=== PATIENT | female | born 1980 | race Caucasian/White ===

== ENCOUNTER 2016-07-31 16:20 | Emergency (ER) | payer BC ==
[2016-07-31 16:27] VITALS: RESP 18
[2016-07-31] MEDS ORDERED: MECLIZINE 12.5 MG TAB PO STA (16:36)
[2016-07-31] MEDS ORDERED: SODIUM CHLORIDE 0.9% 1,000 ML IV STA (16:36)
--- NOTE | 2016-07-31 16:41 | ED ---
Dizziness HPI - General Chief Complaint: Dizziness Stated Complaint: Nausea/Dizziness Time Seen by Provider: 07/31/16 16:31 Source: patient, RN notes reviewed Mode of arrival: wheelchair Limitations: no limitations - History of Present Illness Initial Comments: 35-year-old female presents to the emergency department with a chief complaint of dizziness. Patient states that today he started to see dizziness that occurred all of a sudden. Like the room is spinning. Patient states if she lays to one side and closes her eyes it seems to improve. Patient states movement seems to make it worse. Patient states he has had a fever chills with this. Patient states there is some nausea associated with this. Patient states that she has had this in the past. Patient states she also does feel thirsty abscess time. Patient states there is no falls traumas or injuries with this. Patient states especially the dizziness she is experience before. Patient denies headache. Patient denies any recent fever, chills, shortness of breath, chest pain, back pain, abdominal pain, nausea vomiting, numbness or tingling, dysuria or hematuria, constipation or diarrhea, headaches or visual changes, or any other current symptoms. - Related Data Home Medications Medication Instructions Recorded Confirmed L.acidoph,Paracasei, B.lactis 1 cap PO DAILY 07/31/16 07/31/16 [Probiotic] LORazepam [Ativan] 0.5 mg PO BID PRN 07/31/16 07/31/16 Multivitamins, Thera [Multivitamin] 1 tab PO DAILY 07/31/16 07/31/16 busPIRone HCl [Buspar] 10 mg PO BID 07/31/16 07/31/16 lamoTRIgine [LaMICtal] 200 mg PO HS 07/31/16 07/31/16 Allergies Allergy/AdvReac Type Severity Reaction Status Date / Time No Known Allergies Allergy Verified 07/31/16 16:42 Review of Systems ROS Statement: Those systems with pertinent positive or pertinent negative responses have been documented in the HPI. ROS Other: All systems not noted in ROS Statement are negative. Past Medical History Past Medical History: No Reported History History of Any Multi-Drug Resistant Organisms: None Reported Past Surgical History: Section, Cholecystectomy Past Psychological History: No Psychological Hx Reported, Anxiety, Bipolar Smoking Status: Never smoker Past Alcohol Use History: Occasional Past Drug Use History: None Reported General Exam - General Exam Comments Initial Comments: General: The patient is awake and alert, in no distress, and does not appear acutely ill. Eye: Pupils are equal, round and reactive to light, extra-ocular movements are intact; there is normal conjunctiva bilaterally. No signs of icterus. Ears, nose, mouth and throat: There are moist mucous membranes. Neck: The neck is supple, there is no tenderness. Cardiovascular: There is a regular rate and rhythm. No murmur, rub or gallop is appreciated. Respiratory: Lungs are clear to auscultation, respirations are non-labored, breath sounds are equal. No wheezes, stridor, rales, or rhonchi. Gastrointestinal: Soft, non-distended, non-tender abdomen without masses or organomegaly noted. There is no rebound or guarding present. No CVA tenderness. Bowel sounds are unremarkable. Back: There is no tenderness to palpation in the midline. There is no obvious deformity. No rashes noted. Musculoskeletal: Normal ROM, no tenderness, There is no pedal edema. There is no calf tenderness or swelling. Sensation intact. Pulses equal bilaterally 2+. Neurological: CN II-XII intact, There are no obvious motor or sensory deficits. Coordination appears grossly intact. Speech is normal. no ataxia. Skin: Skin is warm and dry and no rashes or lesions are noted. Psychiatric: Cooperative, appropriate mood & affect, normal judgment. Limitations: no limitations Course Vital Signs 07/31/16 07/31/16 16:23 17:45 Temperature 97.4 F L Pulse Rate 100 92 Respiratory 18 18 Rate Blood Pressure 139/84 130/79 O2 Sat by Pulse 97 100 Oximetry Medical Decision Making - Medical Decision Making 35-year-old female presents emergency Department what appears to be vertigo. Patient has a history of this in the past states exactly like this. Patient does state that she took a double dose of her psychiatric medications because she missed her doses yesterday as well. She states that these symptoms have been following this. She states there is no suicidal or homicidal ideation with this actually states she does not take them so she thought that she should make sure she took both doses. At this time patient's symptoms are more consistent with vertigo properly taking twice a day to help possibly she does not remember it could be a side effect of that medication. At this time patient does contract to see if she does develop any thoughts she has not had any here. Workup otherwise is negative. We did discuss Return parameters. Patient states that she understood all cushions were answered. She will be discharged. - Lab Data Result diagrams: 07/31/16 16:51 07/31/16 16:51 Lab Results 07/31/16 07/31/16 07/31/16 Range/Units 16:51 16:51 18:00 WBC 5.3 (3.8-10.6) k/uL RBC 4.68 (3.80-5.40) m/uL Hgb 13.9 (11.4-16.0) gm/dL Hct 43.0 (34.0-46.0) % MCV 91.8 (80.0-100.0) fL MCH 29.7 (25.0-35.0) pg MCHC 32.3 (31.0-37.0) g/dL RDW 13.1 (11.5-15.5) % Plt Count 300 (150-450) k/uL Neutrophils % 64 % Lymphocytes % 29 % Monocytes % 3 % Eosinophils % 1 % Basophils % 1 % Neutrophils # 3.4 (1.3-7.7) k/uL Lymphocytes # 1.5 (1.0-4.8) k/uL Monocytes # 0.2 (0-1.0) k/uL Eosinophils # 0.0 (0-0.7) k/uL Basophils # 0.0 (0-0.2) k/uL Sodium 135 L (137-145) mmol/L Potassium 3.9 (3.5-5.1) mmol/L Chloride 100 (98-107) mmol/L Carbon Dioxide 22 (22-30) mmol/L Anion Gap 13 mmol/L BUN 10 (7-17) mg/dL Creatinine 0.73 (0.52-1.04) mg/dL Est GFR (MDRD) Af Amer >60 (>60 ml/min/1.73 sqM) Est GFR (MDRD) Non-Af >60 (>60 ml/min/1.73 sqM) Glucose 118 H (74-99) mg/dL Calcium 9.1 (8.4-10.2) mg/dL Total Bilirubin 0.5 (0.2-1.3) mg/dL AST 23 (14-36) U/L ALT 24 (9-52) U/L Alkaline Phosphatase 76 (38-126) U/L Total Protein 7.7 (6.3-8.2) g/dL Albumin 4.4 (3.5-5.0) g/dL Urine Color Yellow Urine Appearance Clear (Clear) Urine pH 7.0 (5.0-8.0) Ur Specific [place] 1.016 (1.001-1.035) Urine Protein Trace H (Negative) Urine Glucose (UA) Negative (Negative) Urine Ketones Trace H (Negative) Urine Blood Negative (Negative) Urine Nitrate Negative (Negative) Urine Bilirubin Negative (Negative) Urine Urobilinogen <2.0 (<2.0) mg/dL Ur Leukocyte Esterase Small H (Negative) Urine RBC 2 (0-5) /hpf Urine WBC 17 H (0-5) /hpf Ur Squamous Epith Cells 3 (0-4) /hpf Amorphous Sediment Rare H (None) /hpf Urine Mucus Rare H (None) /hpf Disposition Clinical Impression: Vertigo, Medication side effect Disposition: HOME SELF-CARE Condition: Stable Instructions: Vertigo (ED) Additional Instructions: Please use medication as discussed. Please follow up with family doctor if symptoms have not improved over the next two days. Please return to the emergency room if your symptoms increase or worsen or for any other concerns. Referrals: Amy Lal MD [STAFF PHYSICIAN] - 1-2 days Time of Disposition: 18:45
[2016-07-31] MEDS ORDERED: METOCLOPRAMIDE 5 MG/ML 2 ML VIAL IVP STA (16:48)
[2016-07-31] MEDS ORDERED: DIAZEPAM 5 MG/ML 2 ML SYRINGE IVP STA (16:55)
[2016-07-31 17:04] LABS: Basophils % (A) 1 %; CH 30.3; CHCM 33.2; Eosinophils % (A) 1 %; HDW 2.15; HGB 13.9 gm/dL (11.4-16.0); Luc # (Auto) 0.12; Luc % (Auto) 2; Lymphocytes # (A) 1.5 k/uL (1.0-4.8); Lymphocytes % (A) 29 %; MCH 29.7 pg (25.0-35.0); MCHC 32.3 g/dL (31.0-37.0); MCV 91.8 fL (80.0-100.0); Monocytes # (A) 0.2 k/uL (0-1.0); Monocytes % (A) 3 %; Neutrophils # (A) 3.4 k/uL (1.3-7.7); Neutrophils % (A) 64 %; RBC 4.68 m/uL (3.80-5.40); RDW 13.1 % (11.5-15.5); WBC 5.3 k/uL (3.8-10.6); WBC (Perox) 5.32
[2016-07-31 17:18] LABS: ALT 24 U/L (9-52); AST 23 U/L (14-36); Alkaline Phosphatase 76 U/L (38-126); Anion Gap 13 mmol/L; Blood Urea Nitrogen 10 mg/dL (7-17); Calcium 9.1 mg/dL (8.4-10.2); Carbon Dioxide 22 mmol/L (22-30); Chloride 100 mmol/L (98-107); Glucose 118 mg/dL (74-99); Non-African American GFR(MDRD) >60 (>60 ml/min/1.73 sqM); Sodium 135 mmol/L (137-145); Total Bilirubin 0.5 mg/dL (0.2-1.3); Total Protein 7.7 g/dL (6.3-8.2)
[2016-07-31 17:28] LABS: Potassium 3.9 mmol/L (3.5-5.1)
[2016-07-31 18:18] LABS: Amorphous Sediment,Urine Rare /hpf; Appearance,Urine Clear (Clear); Bilirubin,Urine Negative (Negative); Glucose,Urine (UA) Negative (Negative); Ketones,Urine Trace (Negative); Leukocyte Esterase,Urine Small (Negative); Mucus,Urine Rare /hpf; Nitrite,Urine Negative (Negative); Particle Count 2798; Protein,Urine Trace (Negative); RBC,Urine 2 /hpf (0-5); Specific Gravity,Urine 1.016 (1.001-1.035); Squamous Epithelial Cell,Urine 3 /hpf (0-4); UA Billing (MACRO vs. MICRO) MICRO; Urobilinogen,Urine <2.0 mg/dL (<2.0); WBC,Urine 17 /hpf (0-5)
--- NOTE | 2016-07-31 18:36 | CT ---
EXAMINATION TYPE: CT brain wok con DATE OF EXAM: 07/31/2016 6:21 PM COMPARISON: NONE HISTORY: Dizziness with nausea and vomiting today. CT DLP: 1079.00 mGycm Automated exposure control for dose reduction was used. FINDINGS: There is no acute intracranial hemorrhage, mass effect, or midline shift identified. The ventricles and sulci are within normal limits in size. The globes are intact and the visualized sinuses are reanto ar. IMPRESSION: No acute intracranial hemorrhage, mass effect, or midline shift is seen.
[2016-07-31 19:06] VITALS: BP 129/81; PULSE 98; TEMP 97.8
== END 2016-07-31 19:00 | disposition home or self-care (01) ==
LOC: EC 16:20
DX: R42 Dizziness and giddiness (principal); R11.0 Nausea; T43.95XA Adverse effect of unspecified psychotropic drug, initial encounter; F31.9 Bipolar disorder, unspecified; F41.9 Anxiety disorder, unspecified; Z79.899 Other long term (current) drug therapy
CPT/HCPCS: 99284; 96374; 96361; 36415; 93005; 80053; 85025; 81001; 70450; J2765

== ENCOUNTER → 2017-08-25 | Outpatient (CLI) | payer BC ==
--- NOTE | 2017-08-25 12:45 | XR ---
EXAMINATION TYPE: XR cervical spine w flex/ext DATE OF EXAM: 08/25/2017 COMPARISON: NONE HISTORY: Pain TECHNIQUE: Neutral, flexion, and extension lateral views are obtained. Odontoid and frontal views als o submitted. FINDINGS: There is loss of the normal lordosis on the neutral view with a kyphosis noted. At C3-C4 on neutral and flexion views there is a 1 mm anterior listhesis. 1 mm anterolisthesis of C5 on C6 seen on flexion view only. Next On extension view there does appear to be movement posteriorly at levels C2-C3, C3-C4 and C4-C5 with approximately 1 to 2 mm retrolisthesis. IMPRESSION: 1. There is some alteration in alignment upon flexion as discussed above. Ligamentous laxity in the d ifferential diagnosis. Correlate clinically or with MRI as clinically warranted.
== END | disposition home or self-care (01) ==
LOC: RADXRMAIN 11:26
PROVIDERS: ATTEND Psychiatry & Neurology Neurology
DX: M53.82 Other specified dorsopathies, cervical region (principal)
CPT/HCPCS: 72052

== ENCOUNTER → 2017-11-06 | Outpatient (CLI) | payer BC ==
--- NOTE | 2017-11-06 09:24 | US ---
EXAMINATION TYPE: US venous doppler duplex LE RT DATE OF EXAM: 11/06/2017 8:58 AM COMPARISON: NONE CLINICAL HISTORY: M79.89 RT leg swelling; right calf pain x 2-3 weeks; no trauma noted by patient SIDE PERFORMED: Right TECHNIQUE: The lower extremity deep venous system is examined utilizing real time linear array sonog consuelo with graded compression, doppler sonography and color-flow sonography. VESSELS IMAGED: Common Femoral Vein Deep Femoral Vein Greater Saphenous Vein * Femoral Vein Popliteal Vein Small Saphenous Vein * Proximal Calf Veins (* superficial vessels) Right Leg: Negative for DVT Tech findings called to Dr Amy Lal at exam's end. JJ IMPRESSION: 1. Right lower extremities negative for deep venous thrombosis by ultrasound.
== END | disposition home or self-care (01) ==
LOC: RADUSMAIN 08:32
PROVIDERS: ATTEND Family Medicine
DX: M79.661 Pain in right lower leg (principal); M79.89 Other specified soft tissue disorders

== ENCOUNTER 2017-11-13 18:36 | Emergency (ER) | payer BC ==
[2017-11-13 18:53] VITALS: BP 145/84; PULSE 94; RESP 18; TEMP 98.5
--- NOTE | 2017-11-13 18:58 | ED ---
Lower Extremity Injury HPI - General Chief Complaint: Extremity Injury, Lower Stated Complaint: Leg pain Time Seen by Provider: 11/13/17 18:47 Source: patient, RN notes reviewed Mode of arrival: ambulatory Limitations: no limitations - History of Present Illness Initial Comments: This a 37-year-old female presents emergency Department chief complaint right leg pain. Patient states has been present for last 3 weeks. Patient saw PCP a few days ago and old chart right leg which was negative for acute DVT. Patient states she feels a throbbing burning sensation in her calf. It is worse with ambulation or pressure. Patient denies any discoloration, rash, swelling or leg. Patient states that she had no trauma she noted. She does state that when she walks or worsens with has not had much improvement with rest. Patient was advised take ibuprofen by PCP and she has been doing this with no improvement. Patient was advised, emergency from for evaluation if symptoms do not improve. - Related Data Home Medications Medication Instructions Recorded Confirmed LORazepam [Ativan] 0.5 mg PO BID PRN 07/31/16 07/31/16 lamoTRIgine [LaMICtal] 200 mg PO HS 07/31/16 07/31/16 Aspirin 650 mg PO DAILY PRN 11/13/17 11/13/17 Ballard-Linyah 28 1 tab PO DAILY 11/13/17 11/13/17 Ondansetron [Zofran ODT] 4 mg PO Q8HR PRN 11/13/17 11/13/17 Allergies Allergy/AdvReac Type Severity Reaction Status Date / Time No Known Allergies Allergy Verified 11/13/17 19:00 Review of Systems ROS Statement: Those systems with pertinent positive or pertinent negative responses have been documented in the HPI. ROS Other: All systems not noted in ROS Statement are negative. Past Medical History Past Medical History: No Reported History History of Any Multi-Drug Resistant Organisms: None Reported Past Surgical History: Section, Cholecystectomy Past Psychological History: No Psychological Hx Reported, Anxiety, Bipolar Smoking Status: Never smoker Past Alcohol Use History: Occasional Past Drug Use History: None Reported General Exam Limitations: no limitations General appearance: alert, in no apparent distress Head exam: Present: atraumatic, normocephalic, normal inspection Respiratory exam: Present: normal lung sounds bilaterally. Absent: respiratory distress, wheezes, rales, rhonchi, stridor Cardiovascular Exam: Present: regular rate, normal rhythm, normal heart sounds. Absent: systolic murmur, diastolic murmur, rubs, gallop, clicks Extremities exam: Present: other (There is moderate tenderness the right calf with palpation there is no discoloration or change in warmth in color. There is no rash noted. Patient has no noted swelling. Pedal pulses are equal bilaterally there is pain with dorsi flexion and plantar flexion. There is no tenderness of the knee or popliteal region.) Skin exam: Present: warm, dry, intact, normal color. Absent: rash Course Vital Signs 11/13/17 18:51 Temperature 98.5 F Pulse Rate 94 Respiratory 18 Rate Blood Pressure 145/84 O2 Sat by Pulse 99 Oximetry Medical Decision Making - Medical Decision Making 37-year-old female presents from chief complaint of right leg pain. Patient had prior ultrasound which was unremarkable for DVT. Patient's x-ray is unremarkable. Patient's pain seems to be more related with muscle skeletal injury such as a soleus versus gastrocnemius strain. Patient will be treated conservatively and follow-up with orthopedics. Return parameters were discussed. Disposition Clinical Impression: Strain of calf muscle, Strain of soleus muscle Disposition: HOME SELF-CARE Condition: Stable Instructions: Muscle Strain (ED) Additional Instructions: Please return to the Emergency Department if symptoms worsen or any other concerns. Is patient prescribed a controlled substance at d/c from ED?: No Referrals: Amy Lal MD [Primary Care Provider] - 1-2 days Isaac Salazar DO [Doctor of Osteopathic Medicine] - 1-2 days Time of Disposition: 19:18
--- NOTE | 2017-11-13 19:13 | XR ---
EXAMINATION TYPE: XR tibia fibula RT DATE OF EXAM: 11/13/2017 CLINICAL HISTORY: Posterior calf pain for 3 weeks. TECHNIQUE: Two views of the right leg are obtained. COMPARISON: None. FINDINGS: There is no acute fracture or dislocation seen in the right tibia or fibula. The right kn ee and ankle joints appear within normal limits. The overlying soft tissue appears unremarkable. IMPRESSION: Unremarkable study.
== END 2017-11-13 19:40 | disposition home or self-care (01) ==
LOC: EC 18:36
DX: S86.911A Strain of unspecified muscle(s) and tendon(s) at lower leg level, right leg, initial encounter (principal); Z79.3 Long term (current) use of hormonal contraceptives; Z79.899 Other long term (current) drug therapy
CPT/HCPCS: 99283

== ENCOUNTER 2017-12-22 03:41 | Emergency (ER) | payer BC ==
[2017-12-22 03:47] VITALS: RESP 18; TEMP 98
--- NOTE | 2017-12-22 04:11 | ED ---
General Adult HPI - General Chief complaint: Urogenital Stated complaint: Possible UTI Time Seen by Provider: 12/22/17 03:57 Source: patient, RN notes reviewed, old records reviewed Mode of arrival: ambulatory Limitations: no limitations - History of Present Illness Initial comments: This is a 29-year-old female the ER for evaluation. Patient comes in for evaluation of what she feels like his urinary tract infection. Patient has history of UTIs. Patient denies any flank pain no chance of . No nausea vomiting. No fevers. Again no flank pain or abdominal pain. - Related Data Home Medications Medication Instructions Recorded Confirmed LORazepam [Ativan] 0.5 mg PO BID PRN 07/31/16 11/13/17 lamoTRIgine [LaMICtal] 400 mg PO HS 07/31/16 11/13/17 Aspirin 650 mg PO DAILY PRN 11/13/17 11/13/17 [place]-Linyah 28 1 tab PO DAILY 11/13/17 11/13/17 Ondansetron [Zofran ODT] 4 mg PO Q8HR PRN 11/13/17 11/13/17 Previous Rx's Medication Instructions Recorded Nitrofurantoin Monohyd/M-Cryst 100 mg PO Q12HR #10 cap 12/22/17 [Macrobid] Allergies Allergy/AdvReac Type Severity Reaction Status Date / Time No Known Allergies Allergy Verified 12/22/17 03:47 Review of Systems ROS Statement: Those systems with pertinent positive or pertinent negative responses have been documented in the HPI. ROS Other: All systems not noted in ROS Statement are negative. Past Medical History Past Medical History: No Reported History History of Any Multi-Drug Resistant Organisms: None Reported Past Surgical History: Section, Cholecystectomy Past Psychological History: Anxiety, Bipolar Smoking Status: Never smoker Past Alcohol Use History: Occasional Past Drug Use History: None Reported General Exam Limitations: no limitations General appearance: alert, in no apparent distress Head exam: Present: atraumatic, normocephalic, normal inspection Eye exam: Present: normal appearance, PERRL, EOMI. Absent: scleral icterus, conjunctival injection, periorbital swelling ENT exam: Present: normal exam, mucous membranes moist Neck exam: Present: normal inspection. Absent: tenderness, meningismus, lymphadenopathy Respiratory exam: Present: normal lung sounds bilaterally. Absent: respiratory distress, wheezes, rales, rhonchi, stridor Cardiovascular Exam: Present: normal rhythm, tachycardia, normal heart sounds. Absent: systolic murmur, diastolic murmur, rubs, gallop, clicks GI/Abdominal exam: Present: soft, normal bowel sounds. Absent: distended, tenderness, guarding, rebound, rigid Extremities exam: Present: normal inspection, full ROM, normal capillary refill. Absent: tenderness, pedal edema, joint swelling, calf tenderness Back exam: Present: normal inspection Neurological exam: Present: alert, oriented X3, CN II-XII intact Psychiatric exam: Present: normal affect, normal mood Skin exam: Present: warm, dry, intact, normal color. Absent: rash Course Vital Signs 12/22/17 03:45 Temperature 98.0 F Pulse Rate 103 H Respiratory 18 Rate Blood Pressure 142/92 O2 Sat by Pulse 98 Oximetry Medical Decision Making - Medical Decision Making 37 female the ER with positive symptoms of urinary tract infection. Patient has urine culture here in the ER, we'll start on antibiotics and discharged home Disposition Clinical Impression: Urinary tract infection Disposition: HOME SELF-CARE Condition: Good Instructions: Urinary Tract Infection in Women (ED) Prescriptions: Nitrofurantoin Monohyd/M-Cryst [Macrobid] 100 mg PO Q12HR #10 cap Is patient prescribed a controlled substance at d/c from ED?: No Referrals: Amy Lal MD [Primary Care Provider] - 1-2 days
[2017-12-22] MEDS ORDERED: NITROFURANTOIN MONOHYD/M-CRYST 100 MG CAP PO STA (04:14)
[2017-12-22 04:45] LABS: Appearance,Urine Clear (Clear); Bilirubin,Urine Negative (Negative); Blood,Urine Moderate (Negative); Color,Urine Colorless; Glucose,Urine (UA) Negative (Negative); Ketones,Urine Negative (Negative); Leukocyte Esterase,Urine Large (Negative); Mucus,Urine Rare /hpf; Nitrite,Urine Negative (Negative); Protein,Urine Negative (Negative); RBC,Urine 1 /hpf (0-5); Specific Gravity,Urine 1.003 (1.001-1.035); Squamous Epithelial Cell,Urine 1 /hpf (0-4); Urobilinogen,Urine <2.0 mg/dL (<2.0); WBC,Urine 56 /hpf (0-5)
[2017-12-22 05:07] VITALS: BP 160/97; PULSE 100
== END 2017-12-22 05:07 | disposition home or self-care (01) ==
LOC: EC 03:41
DX: N39.0 Urinary tract infection, site not specified (principal); R00.0 Tachycardia, unspecified; F31.9 Bipolar disorder, unspecified; Z79.3 Long term (current) use of hormonal contraceptives; Z79.899 Other long term (current) drug therapy
CPT/HCPCS: 81001; 81025; 87077; 87086; 87186; 99284

== ENCOUNTER → 2018-04-23 | Outpatient (CLI) | payer BC ==
[2018-04-23 09:43] LABS: Basophils # (A) 0.1 k/uL (0-0.2); Basophils % (A) 1 %; Eosinophils # (A) 0.1 k/uL (0-0.7); Eosinophils % (A) 2 %; HCT 41.2 % (34.0-46.0); HGB 13.3 gm/dL (11.4-16.0); Lymphocytes # (A) 2.7 k/uL (1.0-4.8); Lymphocytes % (A) 41 %; MCH 29.9 pg (25.0-35.0); MCHC 32.3 g/dL (31.0-37.0); MCV 92.7 fL (80.0-100.0); Mean Platelet Volume 7.1; Monocytes # (A) 0.3 k/uL (0-1.0); Monocytes % (A) 4 %; Neutrophils # (A) 3.4 k/uL (1.3-7.7); Neutrophils % (A) 51 %; Platelet Count 306 k/uL (150-450); RBC 4.44 m/uL (3.80-5.40); WBC 6.6 k/uL (3.8-10.6)
[2018-04-23 17:15] LABS: Albumin 4.2 g/dL (3.80-4.90); Albumin/Globulin Ratio 2.21 (1.20-2.10); Anion Gap 6.2 mmol/L (4.00-12.00); Calcium 9.2 mg/dL (8.7-10.3); Carbon Dioxide 26.8 mmol/L (21.6-31.8); Globulin 1.9 g/dL (2.1-3.7); LDL Cholesterol,Calculated 88.6 mg/dL (0.0-131.0); Potassium 4.3 mmol/L (3.5-5.5); Total Bilirubin 0.3 mg/dL (0.3-1.2); Total Protein 6.1 g/dL (6.2-8.2); VLDL Calculation 40.4 mg/dL (5.00-40.00)
== END | disposition home or self-care (01) ==
LOC: LABWHC1 08:39
PROVIDERS: ATTEND Family Medicine
DX: Z00.00 Encounter for general adult medical examination without abnormal findings (principal); E66.3 Overweight; F31.81 Bipolar II disorder
CPT/HCPCS: 36415; 80053; 80061; 84443; 85025

== ENCOUNTER 2019-03-24 11:22 | Emergency (ER) | payer BC ==
[2019-03-24 11:28] VITALS: BP 135/92; PULSE 89; RESP 18; TEMP 97.7
--- NOTE | 2019-03-24 11:58 | ED ---
General Adult HPI - General Chief complaint: Extremity Injury, Lower Stated complaint: Ankle injury Time Seen by Provider: 03/24/19 11:34 Source: patient Mode of arrival: wheelchair Limitations: no limitations - History of Present Illness Initial comments: Patient is a 38-year-old female presenting to the emergency department with a chief complaint of ankle pain. Patient reports she rolled her left ankle yesterday as she was walking. Patient reports the pain was greater yesterday although has slightly decreased in severity but has now developed bruising. Patient reports the swelling has also increased. Patient reports limited range of motion with inversion and plantar flexion and dorsiflexion. Patient reports pain exacerbation with ambulation and it is alleviated with rest. Patient reports taking ibuprofen for symptomatic control. Patient denies numbness or tingling. - Related Data Home Medications Medication Instructions Recorded Confirmed LORazepam [Ativan] 0.5 mg PO BID PRN 07/31/16 11/13/17 lamoTRIgine [LaMICtal] 400 mg PO HS 07/31/16 11/13/17 Aspirin 650 mg PO DAILY PRN 11/13/17 11/13/17 Barnes-Linyah 28 1 tab PO DAILY 11/13/17 11/13/17 Ondansetron [Zofran ODT] 4 mg PO Q8HR PRN 11/13/17 11/13/17 Previous Rx's Medication Instructions Recorded Fluconazole [Diflucan] 150 mg PO ONCE #2 tab 12/22/17 Nitrofurantoin Monohyd/M-Cryst 100 mg PO Q12HR #10 cap 12/22/17 [Macrobid] Allergies Allergy/AdvReac Type Severity Reaction Status Date / Time No Known Allergies Allergy Verified 03/24/19 11:28 Review of Systems ROS Statement: Those systems with pertinent positive or pertinent negative responses have been documented in the HPI. ROS Other: All systems not noted in ROS Statement are negative. Past Medical History Past Medical History: No Reported History History of Any Multi-Drug Resistant Organisms: None Reported Past Surgical History: Section, Cholecystectomy Past Psychological History: Anxiety, Bipolar Smoking Status: Never smoker Past Alcohol Use History: Occasional Past Drug Use History: None Reported General Exam Limitations: no limitations General appearance: alert, in no apparent distress Head exam: Present: atraumatic, normocephalic, normal inspection Eye exam: Present: normal appearance ENT exam: Present: normal exam, mucous membranes moist, normal external ear exam Neck exam: Present: normal inspection Respiratory exam: Present: normal lung sounds bilaterally Cardiovascular Exam: Present: regular rate, normal rhythm Extremities exam: Present: tenderness (Tenderness of the lateral malleolus and midfoot.), normal capillary refill, joint swelling (Left ankle), other (+2 dorsalis pedis and posterior tibialis bilaterally.). Absent: normal inspection (Ecchymosis and swelling in the left foot), full ROM (Limited range of motion with inversion plantar and dorsiflexion in the left foot), pedal edema, calf tenderness Back exam: Present: normal inspection, full ROM Neurological exam: Present: alert, oriented X3, abnormal gait Psychiatric exam: Present: normal affect, normal mood Skin exam: Present: warm, intact, normal color Course Vital Signs 03/24/19 11:25 Temperature 97.7 F Pulse Rate 89 Respiratory 18 Rate Blood Pressure 135/92 O2 Sat by Pulse 97 Oximetry Medical Decision Making - Medical Decision Making Patient is a 38-year-old female presenting to the emergency department with a chief complaint of ankle pain. Patient had rolled her left ankle yesterday and had developed swelling and ecchymosis in the region. Patient does have problems with ambulation, inversion dorsi and plantar flexion. Physical examination patient does have tenderness along the left lateral malleolus and mild midfoot tenderness. Patient does have positive anterior drawer test. Patient is neurovascularly intact in the left ankle. X-ray of the left ankle is unremarkable. I suspect the patient to have suffered an ankle sprain. Stirrups were applied. Patient advised to obtain a repeat x-ray in 7-10 days if symptoms not improved. Patient advised to follow-up with orthopedics for the same reason. Patient advised to return to emergency department if symptoms worsen. Patient advised to alternate between Tylenol and ibuprofen for pain control. Case discussed with physician. Disposition Clinical Impression: Ankle pain, left, Left ankle sprain Disposition: HOME SELF-CARE Condition: Stable Instructions (If sedation given, give patient instructions): Ankle Sprain (ED) Additional Instructions: Alternate between Tylenol and ibuprofen for pain control. Please follow up with orthopedics if symptoms not improved. Please obtain a repeat x-ray in 7-10 days. Please return to emergency department if symptoms worsen. Apply ice to minimize symptoms. Is patient prescribed a controlled substance at d/c from ED?: No Referrals: None,Stated [Primary Care Provider] - 1-2 days Zaheer Holt DO [Medical Doctor] - 1-2 days Time of Disposition: 13:02
--- NOTE | 2019-03-24 12:29 | XR ---
EXAMINATION TYPE: XR ankle complete LT DATE OF EXAM: 03/24/2019 COMPARISON: NONE HISTORY: Pain FINDINGS: Three views of the ankle demonstrate the ankle mortise to be intact and symmetric. The joint spaces are preserved. The osseous structures are intact. IMPRESSION: 1. No definite acute fracture or dislocation, if symptoms persist follow-up study in 7 to 10 days wou ld be suggested.
--- NOTE | 2019-03-24 12:31 | XR ---
EXAMINATION TYPE: XR foot complete LT DATE OF EXAM: 03/24/2019 COMPARISON: NONE HISTORY: Pain TECHNIQUE: Three views are submitted. FINDINGS: The osseous structures are intact. There is no acute fracture or dislocation. Joint spaces are p reserved. IMPRESSION: 1. No acute fracture or dislocation. If symptoms persist, follow-up exam in 7 to 10 days could be ob tained.
== END 2019-03-24 13:13 | disposition home or self-care (01) ==
LOC: EC 11:22
DX: S93.402A Sprain of unspecified ligament of left ankle, initial encounter (principal); F41.9 Anxiety disorder, unspecified; F31.9 Bipolar disorder, unspecified; Z79.899 Other long term (current) drug therapy; Z79.3 Long term (current) use of hormonal contraceptives; X50.1XXA Overexertion from prolonged static or awkward postures, initial encounter; Y93.01 Activity, walking, marching and hiking
CPT/HCPCS: 99283

== ENCOUNTER 2019-09-06 05:57 | Emergency (ER) | payer BC ==
[2019-09-06 06:11] VITALS: BP 134/95; PULSE 104; RESP 15; TEMP 97.8
--- NOTE | 2019-09-06 06:28 | ED ---
Female Urogenital HPI - General Chief complaint: Urogenital Stated complaint: UTI Time Seen by Provider: 09/06/19 06:02 Source: patient Mode of arrival: ambulatory Limitations: no limitations - History of Present Illness Initial comments: This patient is a 38-year-old woman who presents with suspicion that she is developing urinary tract infection. She states her symptoms are similar to previous urinary tract infections. She states 2-3 days ago she started having frequency and urgency. She also is complaining of burning type dysuria. She took some [id number] cranberry tablets but the symptoms did not improve and have worsened over the course of tonight. The patient is not having any systemic symptoms, no fever or chills. No vomiting or diarrhea. She is not having any back or abdominal pain. No rash or vaginal discharge. MD Complaint: dysuria -: days(s) Location: perineum Radiation: non-radiating Severity: moderate Quality: burning Consistency: intermittent Improves with: urination Worsens with: none Associated Symptoms: other - Related Data Home Medications Medication Instructions Recorded Confirmed LORazepam [Ativan] 0.5 mg PO BID PRN 07/31/16 11/13/17 lamoTRIgine [LaMICtal] 400 mg PO HS 07/31/16 11/13/17 Aspirin 650 mg PO DAILY PRN 11/13/17 11/13/17 [place] 28 1 tab PO DAILY 11/13/17 11/13/17 Ondansetron [Zofran ODT] 4 mg PO Q8HR PRN 11/13/17 11/13/17 Previous Rx's Medication Instructions Recorded Fluconazole [Diflucan] 150 mg PO ONCE #2 tab 12/22/17 Nitrofurantoin Monohyd/M-Cryst 100 mg PO Q12HR #10 cap 12/22/17 [Macrobid] Fluconazole [Diflucan] 150 mg PO ONCE #1 tab 09/06/19 Nitrofurantoin Monohyd/M-Cryst 100 mg PO Q12HR #6 cap 09/06/19 [Macrobid] Phenazopyridine [Pyridium] 100 mg PO TID #6 tablet 09/06/19 Allergies Allergy/AdvReac Type Severity Reaction Status Date / Time No Known Allergies Allergy Verified 09/06/19 06:14 Review of Systems ROS Statement: Those systems with pertinent positive or pertinent negative responses have been documented in the HPI. ROS Other: All systems not noted in ROS Statement are negative. Constitutional: Denies: fever, chills Respiratory: Denies: cough, dyspnea Cardiovascular: Denies: chest pain Gastrointestinal: Denies: abdominal pain, nausea, vomiting, diarrhea Genitourinary: Reports: urgency, dysuria, frequency. Denies: hematuria, discharge, abnormal menses Musculoskeletal: Denies: back pain Skin: Denies: rash Neurological: Denies: headache Past Medical History Past Medical History: No Reported History History of Any Multi-Drug Resistant Organisms: None Reported Past Surgical History: Section, Cholecystectomy Past Psychological History: Anxiety, Bipolar Smoking Status: Never smoker Past Alcohol Use History: Occasional Past Drug Use History: None Reported General Exam Limitations: no limitations General appearance: alert, in no apparent distress Head exam: Present: atraumatic, normocephalic Course Vital Signs 09/06/19 06:05 Temperature 97.8 F Pulse Rate 104 H Respiratory 15 Rate Blood Pressure 134/95 O2 Sat by Pulse 97 Oximetry Medical Decision Making - Lab Data Lab Results 09/06/19 Range/Units 06:03 Urine HCG, Qual Not Detected (Not Detectd) Disposition Clinical Impression: Urinary tract infection Disposition: HOME SELF-CARE Condition: Good Instructions (If sedation given, give patient instructions): Urinary Tract Infection in Women (ED) Prescriptions: Fluconazole [Diflucan] 150 mg PO ONCE #1 tab Nitrofurantoin Monohyd/M-Cryst [Macrobid] 100 mg PO Q12HR #6 cap Phenazopyridine [Pyridium] 100 mg PO TID #6 tablet Is patient prescribed a controlled substance at d/c from ED?: No Referrals: Amy Lal MD [Primary Care Provider] - 1-2 days
[2019-09-06 07:02] LABS: Appearance,Urine Cloudy (Clear); Bacteria,Urine Rare /hpf; Bilirubin,Urine Negative (Negative); Blood,Urine Large (Negative); Color,Urine Yellow; Glucose,Urine (UA) Negative (Negative); Ketones,Urine Negative (Negative); Leukocyte Esterase,Urine Large (Negative); Nitrite,Urine Negative (Negative); Protein,Urine 1+ (Negative); RBC,Urine 71 /hpf (0-5); Specific Gravity,Urine 1.009 (1.001-1.035); Squamous Epithelial Cell,Urine 2 /hpf (0-4); Urobilinogen,Urine <2.0 mg/dL (<2.0); WBC,Urine >182 /hpf (0-5)
[2019-09-06] MEDS ORDERED: PHENAZOPYRIDINE 100 MG TAB PO STA (07:08)
[2019-09-06] MEDS ORDERED: NITROFURANTOIN MONOHYD/M-CRYST 100 MG CAP PO STA (07:31)
== END 2019-09-06 07:42 | disposition home or self-care (01) ==
LOC: EC 05:57
DX: N39.0 Urinary tract infection, site not specified (principal); F41.9 Anxiety disorder, unspecified; F31.9 Bipolar disorder, unspecified; Z79.899 Other long term (current) drug therapy
CPT/HCPCS: 81001; 81025; 87086; 99283

== ENCOUNTER → 2020-01-06 | Outpatient (CLI) | payer BC ==
--- NOTE | 2020-01-06 13:39 | MM ---
Reason for exam: screening (asymptomatic). Baseline mammogram. History: Patient had first child at age 31. Family history of breast cancer in maternal aunt at age 65. Physical Findings: Nurse did not find any significant physical abnormalities on exam. MG 3D Screening Mammo W/Cad Bilateral CC and MLO view(s) were taken. The breast tissue is heterogeneously dense. This may lower the sensitivity of mammography. There is no discrete abnormality. These results were verbally communicated with the patient and result sheet given to the patient on 01/06/20. ASSESSMENT: Negative, BI-RAD 1 RECOMMENDATION: Routine screening mammogram of both breasts in 1 year.
== END | disposition home or self-care (01) ==
LOC: RADMAMWWP 12:13
PROVIDERS: ATTEND Obstetrics & Gynecology Obstetrics
DX: Z12.31 Encounter for screening mammogram for malignant neoplasm of breast (principal)
CPT/HCPCS: 77063; 77067

== ENCOUNTER → 2020-01-10 | Outpatient (CLI) | payer BC ==
[2020-01-10 13:26] LABS: Basophils # (A) 0.1 k/uL (0-0.2); Basophils % (A) 1 %; Eosinophils # (A) 0.1 k/uL (0-0.7); Eosinophils % (A) 2 %; HCT 40.6 % (34.0-46.0); Lymphocytes # (A) 2.5 k/uL (1.0-4.8); Lymphocytes % (A) 40 %; MCH 29.4 pg (25.0-35.0); MCV 91.9 fL (80.0-100.0); Mean Platelet Volume 7.7; Monocytes # (A) 0.2 k/uL (0-1.0); Monocytes % (A) 4 %; Neutrophils # (A) 3.3 k/uL (1.3-7.7); Neutrophils % (A) 52 %; Platelet Count 276 k/uL (150-450); RBC 4.42 m/uL (3.80-5.40); RDW 13.5 % (11.5-15.5); WBC 6.4 k/uL (3.8-10.6)
== END | disposition home or self-care (01) ==
LOC: LABPAT 12:27
PROVIDERS: ATTEND Obstetrics & Gynecology Obstetrics
DX: Z01.818 Encounter for other preprocedural examination (principal)
CPT/HCPCS: 36415; 85025

== ENCOUNTER → 2020-05-22 | Outpatient (CLI) | payer BC ==
[2020-05-22 19:19] LABS: Anti-DNA, DS unit <1.0 IU/mL; DNA Double-Stranded NEGATIVE (NEGATIVE)
[2020-05-22 20:41] LABS: C Reactive Protein 1.1 mg/dL (0.0-0.8)
[2020-05-23 10:55] LABS: Protein, Total 7.1 g/dL (6.2-8.2)
[2020-05-23 14:34] LABS: Albumin 4.08 g/dL (3.80-4.90); Gamma Globulin 0.77 g/dL (0.70-1.50)
== END | disposition home or self-care (01) ==
LOC: LABWHC1 11:12
PROVIDERS: ATTEND Psychiatry & Neurology Neurology
DX: M79.10 Myalgia, unspecified site (principal); G43.909 Migraine, unspecified, not intractable, without status migrainosus; M54.2 Cervicalgia; M25.50 Pain in unspecified joint; G62.9 Polyneuropathy, unspecified
CPT/HCPCS: 36415; 82306; 82550; 84165; 84443; 85652; 86038; 86140; 86225; 86431; 86618; 86780

== ENCOUNTER 2020-06-08 12:36 | Emergency (ER) | payer BC ==
[2020-06-08 12:47] VITALS: BP 137/91; PULSE 98; RESP 18; TEMP 98.9
--- NOTE | 2020-06-08 13:10 | ED ---
Lower Extremity Injury HPI - General Chief Complaint: Extremity Injury, Lower Stated Complaint: L ANKLE PAIN,INJURY ACCORD 06/07/20 Time Seen by Provider: 06/08/20 12:52 Source: patient Mode of arrival: ambulatory Limitations: no limitations - History of Present Illness Initial Comments: 39-year-old female presents today for chief complaint of left ankle pain patient states in [facility] [place] she was going to her truck when she slipped on a curb inverting her left ankle. Patient states she had left ankle pain swelling and bruising. Patient states that she noticed the bruising of the lateral acid" that there might be something more wrong she states the pain has not been severe but she wanted to get it checked out anyways. Patient states she has been able to weight-bear but this is tender. Patient denies any hip pain denies any injury to the head and neck abdomen chest or low back. Patient denies additional complaints upon arrival patient appears well and nontoxic distress - Related Data Home Medications Medication Instructions Recorded Confirmed lamoTRIgine [LaMICtal] 200 mg PO HS 07/31/16 06/08/20 LORazepam [Ativan] 0.5 - 1 mg PO HS PRN 01/17/20 06/08/20 Cholecalciferol [Vitamin D3 (25 10,000 unit PO DAILY 06/08/20 06/08/20 Mcg = 1000 Iu)] Cyclobenzaprine [Flexeril] 5 - 10 mg PO HS PRN 06/08/20 06/08/20 Ibuprofen [Motrin] 800 mg PO DAILY PRN 06/08/20 06/08/20 Nefazodone HCl 50 mg PO HS 06/08/20 06/08/20 Allergies Allergy/AdvReac Type Severity Reaction Status Date / Time No Known Allergies Allergy Verified 06/08/20 13:22 Review of Systems ROS Statement: Those systems with pertinent positive or pertinent negative responses have been documented in the HPI. ROS Other: All systems not noted in ROS Statement are negative. Past Medical History Past Medical History: No Reported History History of Any Multi-Drug Resistant Organisms: None Reported Past Surgical History: Section, Cholecystectomy Past Psychological History: Anxiety, Bipolar Smoking Status: Never smoker Past Alcohol Use History: Occasional Past Drug Use History: None Reported General Exam - General Exam Comments Initial Comments: General: The patient is awake and alert, in no distress Eye: Pupils are equal, round and reactive to light, extra-ocular movements are intact. No nystagmus. There is normal conjunctiva bilaterally. No signs of icterus. Musculoskeletal: Lateral soft tissue swelling. Some mild ecchymosis. tender to touch. Normal ROM, with tenderness of left ankle. Strength 5/5. Compartments of ankle-foot lower legs off compressible Sensation intact of the lower extremity proximal distal to the injury site as well.. DP pulses equal bilaterally 2+. Neurological: A&O x 3. CN II-XII intact, There are no obvious motor or sensory deficits. Coordination appears grossly intact. Speech is normal. Skin: Skin is warm and dry and no rashes or lesions are noted. Psychiatric: Cooperative, appropriate mood & affect, normal judgment. Limitations: no limitations Course Vital Signs 06/08/20 12:42 Temperature 98.9 F Pulse Rate 98 Respiratory 18 Rate Blood Pressure 137/91 O2 Sat by Pulse 98 Oximetry Procedures - Orthopedic Splinting/Casting Injury #1 Side: left Upper Extremity Immobilizer: Dk wrap, synthetic pre-padded splint Lower Extremity Injury Location: short leg, ankle Lower Extremity Immobilizer: posterior splint, stirrup splint Medical Decision Making - Medical Decision Making XR no definitive fracture. small luceny noted. pt splinted. discussed imaging results. recommended NWB ambulating with crutches and keeping splint in place until further outpatinet orthopedic evaluation. pt agreeable to care plan and discharge. Disposition Clinical Impression: Left ankle pain, Left ankle sprain Disposition: HOME SELF-CARE Condition: Good Instructions (If sedation given, give patient instructions): Ankle Fracture (ED), Ankle Sprain (ED) Additional Instructions: Please use medication as discussed. Please follow-up with orthopedic surgery in the next week. Use crutches for ambulation and keep splint in place. Please return to emergency room if the symptoms increase or worsen or for any other concerns. Is patient prescribed a controlled substance at d/c from ED?: No Referrals: Moe Marie DO [Primary Care Provider] - 1-2 days Ady Marte DO [Doctor of Osteopathic Medicine] - 1-2 days Time of Disposition: 13:35
--- NOTE | 2020-06-08 13:22 | XR ---
EXAM: XR Left Ankle Complete, 3 or More Views CLINICAL HISTORY: ITS.REASON XR Reason: lateral pain/swelling inversion injury TECHNIQUE: Frontal, lateral and oblique views of the left ankle. COMPARISON: None FINDINGS: Bones/joints: Questionable lucency in the distal left fibula only seen on the AP view, above the level of the ankle mortise. This may represent artifact versus nondisplaced fracture. No other acute fracture or dislocation identified. Ankle mortise is intact. Soft tissues: Lateral soft tissue swelling. IMPRESSION: Questionable lucency in the distal left fibula only seen on the AP view. This may represent artifact versus nondisplaced fracture. No other acute fracture or dislocation identified. Further evaluation could be performed with CT or MRI if clinically indicated.
== END 2020-06-08 13:48 | disposition home or self-care (01) ==
LOC: EC 12:36
DX: S93.402A Sprain of unspecified ligament of left ankle, initial encounter (principal); S90.02XA Contusion of left ankle, initial encounter; F41.9 Anxiety disorder, unspecified; F31.9 Bipolar disorder, unspecified; Z79.899 Other long term (current) drug therapy; Z90.49 Acquired absence of other specified parts of digestive tract; W01.0XXA Fall on same level from slipping, tripping and stumbling without subsequent striking against object, initial encounter; X50.1XXA Overexertion from prolonged static or awkward postures, initial encounter
CPT/HCPCS: 29515; 99283

== ENCOUNTER → 2020-07-16 | Outpatient (CLI) | payer BC ==
--- NOTE | 2020-07-16 13:36 | XR ---
EXAMINATION TYPE: XR bone survey complete DATE OF EXAM: 07/16/2020 COMPARISON: Cervical spine 08/25/2017 HISTORY: D 47.2, R51, F31.81 Frontal and lateral views of the spine, frontal view of the chest, frontal views of the proximal uppe r and lower extremities, frontal and lateral views of the calvarium, frontal view the pelvis submitte d on a total of 17 images. There is no evident lytic or blastic lesion. Degenerative disc changes and reversal of cervical arthr osis is again noted in the cervical spine. Bone mineralization is maintained. IMPRESSION: Degenerative disc disease in the cervical spine.
== END | disposition home or self-care (01) ==
LOC: RADXRMAIN 12:08
PROVIDERS: ATTEND Internal Medicine Hematology & Oncology
DX: M50.30 Other cervical disc degeneration, unspecified cervical region (principal); F31.81 Bipolar II disorder; D47.2 Monoclonal gammopathy
CPT/HCPCS: 77075

== ENCOUNTER 2021-04-27 11:57 | Emergency (ER) | payer BC ==
[2021-04-27 12:16] VITALS: TEMP 98.4
--- NOTE | 2021-04-27 14:32 | ED ---
General Adult HPI - General Chief complaint: Skin/Abscess/Foreign Body Stated complaint: Rash/med reaction Time Seen by Provider: 04/27/21 13:49 Source: patient, RN notes reviewed Mode of arrival: ambulatory Limitations: no limitations - History of Present Illness Initial comments: 40-year-old female presents to the emergency department for evaluation of increased facial redness. Patient states she was recently diagnosed with rosacea and started on oral and topical antibiotic treatment. Patient states in the last 2 days the redness is increased, and is spreading toward her eyes. Patient states she is concerned about her vision and she has a dry, scratchy sensation, though no change in vision. Also reports small fluid-filled sores around her mouth and lower face that are acne in appearance, though none present currently. Patient also expresses concern about interaction between home medications and newly prescribed medications. Denies fever, chills, headache, or rash in any other location. - Related Data Home Medications Medication Instructions Recorded Confirmed lamoTRIgine [LaMICtal] 200 mg PO HS 07/31/16 06/08/20 LORazepam [Ativan] 0.5 - 1 mg PO HS PRN 01/17/20 06/08/20 Cholecalciferol [Vitamin D3 (25 10,000 unit PO DAILY 06/08/20 06/08/20 Mcg = 1000 Iu)] Cyclobenzaprine [Flexeril] 5 - 10 mg PO HS PRN 06/08/20 06/08/20 Ibuprofen [Motrin] 800 mg PO DAILY PRN 06/08/20 06/08/20 Nefazodone HCl 50 mg PO HS 06/08/20 06/08/20 Allergies Allergy/AdvReac Type Severity Reaction Status Date / Time No Known Allergies Allergy Verified 06/08/20 13:22 Review of Systems ROS Statement: Those systems with pertinent positive or pertinent negative responses have been documented in the HPI. ROS Other: All systems not noted in ROS Statement are negative. Past Medical History Past Medical History: No Reported History History of Any Multi-Drug Resistant Organisms: None Reported Past Surgical History: Section, Cholecystectomy Past Psychological History: Anxiety, Bipolar Smoking Status: Never smoker Past Alcohol Use History: Occasional Past Drug Use History: None Reported General Exam Limitations: no limitations (Well-developed, well-nourished female in no acute distress. Initial temperature 98.4, pulse 84, respirations 19, blood pressure 144/93, pulse ox 97% on room air.) General appearance: alert, in no apparent distress Eye exam: Present: normal appearance, PERRL, EOMI ENT exam: Present: normal oropharynx, mucous membranes moist Neck exam: Present: normal inspection. Absent: tenderness, meningismus, lymphadenopathy Respiratory exam: Present: normal lung sounds bilaterally. Absent: respiratory distress, wheezes, rales, rhonchi, stridor Cardiovascular Exam: Present: regular rate, normal rhythm, normal heart sounds. Absent: systolic murmur, diastolic murmur, rubs, gallop, clicks Neurological exam: Present: alert, oriented X3 Psychiatric exam: Present: anxious Skin exam: Present: erythema (Erythema on forehead, nose, cheeks, and chin. No lesions, sores, pustules, or vesicles.) Course Vital Signs 04/27/21 04/27/21 12:11 16:07 Temperature 98.4 F Pulse Rate 84 88 Respiratory 19 18 Rate Blood Pressure 144/93 144/88 O2 Sat by Pulse 97 98 Oximetry Medical Decision Making - Medical Decision Making 40-year-old female presents to the emergency department for evaluation of facial erythema with a new diagnosis of rosacea. Upon exam, patient has moderate amount of erythema across the forehead and cheeks nose, and chin. Erythema does not extend beyond the mandible and there are presently no lesions, vesicles, or pustules. Patient has been on oral and topical antibiotics as prescribed by her primary care provider. 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 Patient was reassured that her presentation was consistent with rosacea and that she was on appropriate therapy. This patient's care was discussed with my attending Dr. Clements. Patient will be discharged home to follow-up with primary care and instructed to contact the advanced practice psychiatric nurse today who her primary care provider referred her to. Return parameters were discussed in detail. Patient verbalizes understanding and agrees with this plan. Disposition Clinical Impression: Rosacea Disposition: HOME SELF-CARE Condition: Stable Instructions (If sedation given, give patient instructions): Rosacea (ED) Additional Instructions: Continue topical metronidazole cream as previously prescribed. Follow-up with your primary care for a recheck. See dermatology for further evaluation and treatment. Return to the emergency department with any new, worsening, or concerning symptoms. Is patient prescribed a controlled substance at d/c from ED?: No Referrals: Moe Marie DO [Primary Care Provider] - 1-2 days Time of Disposition: 15:27
[2021-04-27 16:08] VITALS: BP 144/88; PULSE 88; RESP 18
== END 2021-04-27 16:08 | disposition home or self-care (01) ==
LOC: EC 11:57
DX: L71.9 Rosacea, unspecified (principal); F31.9 Bipolar disorder, unspecified; F41.9 Anxiety disorder, unspecified; Z79.1 Long term (current) use of non-steroidal anti-inflammatories (NSAID); Z90.49 Acquired absence of other specified parts of digestive tract; Z79.899 Other long term (current) drug therapy
CPT/HCPCS: 99282

== ENCOUNTER → 2021-05-22 | Outpatient (CLI) | payer BC ==
--- NOTE | 2021-05-23 14:23 | MM ---
Reason for exam: screening (asymptomatic). Last mammogram was performed 1 year and 4 months ago. History: Patient had first child at age 31. Family history of breast cancer in maternal aunt at age 65. Physical Findings: A clinical breast exam by your physician is recommended on an annual basis and results should be correlated with mammographic findings. MG 3D Screening Mammo W/Cad Bilateral CC and MLO view(s) were taken. Prior study comparison: January 06, 2020, bilateral MG 3d screening mammo w/cad. No significant changes when compared with prior studies. ASSESSMENT: Benign, BI-RAD 2 RECOMMENDATION: Routine screening mammogram of both breasts in 1 year.
== END | disposition home or self-care (01) ==
LOC: RADMAMWWP 09:42
PROVIDERS: ATTEND Family Medicine
DX: Z12.31 Encounter for screening mammogram for malignant neoplasm of breast (principal); Z80.3 Family history of malignant neoplasm of breast
CPT/HCPCS: 77063; 77067

== ENCOUNTER → 2022-06-25 | Outpatient (CLI) | payer BC ==
--- NOTE | 2022-06-26 19:55 | MM ---
Reason for Exam: Screening (asymptomatic). Last mammogram was performed 1 year(s) and 1 month(s) ago. Patient History: Menarche at age 12. First Full-Term at age 31. Late child-bearing (after 30). Maternal aunt had breast cancer, age 65. Last menstrual period: 06/08/2022 Risk Values: Kanchan 5 year model risk: 0.9%. NCI Lifetime model risk: 13.4%. Prior Study Comparison: 01/06/2020 Bilateral Screening Mammogram, [facility]. 05/22/2021 Bilateral Screening Mammogram, [facility]. Tissue Density: The breast tissue is heterogeneously dense. This may lower the sensitivity of mammography. Findings: Analyzed By CAD. Possible distortion central left cc view just lateral to the retroareolar plane. This doesn't completely disperse on 3-D images. However, no clear correlate on the MLO view. Findings may represent superimposition shadow but further evaluation is recommended. Otherwise, no significant change. Overall Assessment: Incomplete: need additional imaging evaluation, BI-RAD 0 Management: Special View Mammogram of the left breast. Including spot 3-D CC, 3-D CC rolled medial, and 3-D ML views. Targeted left breast ultrasound if any persisting abnormality. [facility] will attempt to contact patient to return for supplemental views and ultrasound if indicated. Electronically signed and approved by: Joao Waldron M.D. Radiologist
== END | disposition home or self-care (01) ==
LOC: RADMAMWWP 16:20
PROVIDERS: ATTEND Family Medicine
DX: Z12.31 Encounter for screening mammogram for malignant neoplasm of breast (principal); Z80.3 Family history of malignant neoplasm of breast
CPT/HCPCS: 77063; 77067

== ENCOUNTER → 2022-07-02 | Outpatient (CLI) | payer BC ==
--- NOTE | 2022-07-02 14:23 | MM ---
Reason for Exam: Additional evaluation requested from abnormal screening. Last screening mammogram was performed less than 1 month ago. Patient History: Menarche at age 12. First Full-Term at age 31. Late child-bearing (after 30). Maternal aunt had breast cancer, age 65. Risk Values: Kanchan 5 year model risk: 0.9%. NCI Lifetime model risk: 13.4%. Prior Study Comparison: 01/06/2020 Bilateral Screening Mammogram, [facility]. 05/22/2021 Bilateral Screening Mammogram, [facility]. 06/25/2022 Bilateral MG 3D screening mammo w/cad, [facility]. Tissue Density: Left: There are scattered fibroglandular densities. Findings: Analyzed By CAD. No suspicious calcifications, masses or distortions. Area within the left breast resolves out on compression imaging. Overall Assessment: Benign, BI-RAD 2 Management: Screening Mammogram of both breasts in 1 year. A clinical breast exam by your physician is recommended on an annual basis and results should be correlated with mammographic findings. This exam should not preclude additional follow-up of suspicious palpable abnormalities. Results were given to the patient verbally at the time of exam. Electronically signed and approved by: Aleksandar Moss DO
== END | disposition home or self-care (01) ==
LOC: RADMAMWWP 13:45
PROVIDERS: ATTEND Family Medicine
DX: R92.8 Other abnormal and inconclusive findings on diagnostic imaging of breast (principal); Z80.3 Family history of malignant neoplasm of breast
CPT/HCPCS: 77061; 77065

== ENCOUNTER → 2022-10-15 | Outpatient (CLI) | payer BC ==
--- NOTE | 2022-10-15 16:18 | US ---
EXAMINATION TYPE: US pelvic complete DATE OF EXAM: 10/15/2022 COMPARISON: NONE CLINICAL INDICATION: Female, 41 years old with history of R10.9 ABD PAIN; Pelvic pain TECHNIQUE: Transabdominal (TA). Date of LMP: 10/14/22 EXAM MEASUREMENTS: Uterus: 7.1 x 3.0 x 4.1 cm Endometrial Stripe: 0.3 cm Right Ovary: 3.5 x 2.4 x 1.5 cm Left Ovary: 2.3 x 2.5 x 1.4 cm 1. Uterus: Anteverted 2. Endometrium: appears wnl 3. Right Ovary: follicles noted 4. Left Ovary: follicles noted 5. Bilateral Adnexa: wnl 6. Posterior cul-de-sac: wnl Heterogeneous anteverted uterus. Endometrial stripe within normal limits for day 2 of menstrual cycle . No free fluid. Both ovaries are seen. They are symmetric and normal in size. No suspicious adnexal masses are noted IMPRESSION: Unremarkable transabdominal pelvic ultrasound study.
== END | disposition home or self-care (01) ==
LOC: RADUSWWP 15:37
PROVIDERS: ATTEND Family Medicine
DX: R10.2 Pelvic and perineal pain (principal)
CPT/HCPCS: 76856

== ENCOUNTER → 2023-12-21 | Outpatient (CLI) | payer BC ==
--- NOTE | 2023-12-21 10:12 | XR ---
EXAMINATION TYPE: XR foot complete RT DATE OF EXAM: 12/21/2023 9:44 AM CLINICAL INDICATION:Female, 43 years old with history of S99.921A Injury right foot; [facility] COMPARISON: None TECHNIQUE: XR foot complete RT examined in the AP, oblique, and lateral projections. FINDINGS: No evidence of any acute osseous pathology. No evidence of soft tissue swelling. Incidental note is made of symphalangism of the fifth distal interphalangeal joint. IMPRESSION: No evidence of acute fracture.
== END | disposition home or self-care (01) ==
LOC: RADXRMAIN 09:31
PROVIDERS: ATTEND Family Medicine
DX: S99.921A Unspecified injury of right foot, initial encounter (principal)

== ENCOUNTER → 2024-02-27 | Outpatient (CLI) | payer BC ==
[2024-02-27 12:56] LABS: Basophils # (A) 0.06 X 10*3/uL (0.00-0.10); Eosinophils % (A) 1.7 %; HCT 43.2 % (37.2-46.3); HGB 13.7 g/dL (12.0-15.0); Immature Grans, Automated 0 %; Lymphocytes # (A) 2.63 X 10*3/uL (0.90-5.00); Lymphocytes % (A) 43.8 %; MCHC 31.7 g/dL (32.0-37.0); MCV 91.5 FL (80.0-97.0); Mean Platelet Volume 10.8 FL (9.5-12.2); Monocytes # (A) 0.36 X 10*3/uL (0.20-1.00); NRBC Per 100 WBC 0 X 10*3/uL (0.00-0.01); Neutrophils # (A) 2.85 X 10*3/uL (1.80-7.70); Neutrophils % (A) 47.5 %; Platelet Count 289 X 10*3/uL (140-440); RBC 4.72 X 10*6/uL (4.10-5.20); RDW 14.6 % (11.5-14.5)
[2024-02-27 13:13] LABS: ALT 12 U/L (8-44); AST 13 U/L (13-35); Albumin 4.4 g/dL (3.8-4.9); Albumin/Globulin Ratio 1.91 Ratio (1.60-3.17); Alkaline Phosphatase 76 U/L (41-126); BUN/Creat Ratio 12.89 Ratio (12.00-20.00); Blood Urea Nitrogen 11.6 mg/dL (9.0-27.0); Calcium 9.5 mg/dL (8.7-10.3); Carbon Dioxide 24.2 mmol/L (21.6-31.8); Chloride 106 mmol/L (96-109); Chol/HDL Ratio 3.66 Ratio; Globulin 2.3 g/dL (1.6-3.3); Glucose 94 mg/dL (70-110); LDL Cholesterol,Calculated 124.9 mg/dL (0.0-131.0); Potassium 4.5 mmol/L (3.5-5.5); Sodium 140 mmol/L (135-145); T4, Free (Free Thyroxine) 0.94 ng/dL (0.80-1.80); Total Bilirubin 0.3 mg/dL (0.3-1.2); Total Protein 6.7 g/dL (6.2-8.2)
== END | disposition home or self-care (01) ==
LOC: LABWHC1 09:03
PROVIDERS: ATTEND Family Medicine
DX: F41.0 Panic disorder [episodic paroxysmal anxiety] (principal); E66.9 Obesity, unspecified
CPT/HCPCS: 36415; 80053; 80061; 83036; 84439; 84443; 84481; 85025

== ENCOUNTER → 2024-11-04 | Outpatient (CLI) | payer BC ==
--- NOTE | 2024-11-04 13:27 | MM ---
Reason for Exam: Screening (asymptomatic). Last mammogram was performed 2 year(s) and 4 month(s) ago. Patient History: Menarche at age 12. First Full-Term at age 31. Late child-bearing (after 30). Premenopausal. Maternal aunt had breast cancer, age 65. Risk Values: Kanchan 5 year model risk: 1.1%. NCI Lifetime model risk: 13.0%. Prior Study Comparison: 05/22/2021 Bilateral Screening Mammogram, [facility]. 06/25/2022 Bilateral MG 3D screening mammo w/cad, [facility]. 07/02/2022 Left MG 3D work up w/cad , [facility]. Tissue Density: The breasts are heterogeneously dense, which may obscure small masses. Findings: Analyzed By CAD. Right breast: There is no suspicious group of microcalcifications or new suspicious mass. Left breast: There is no suspicious group of microcalcifications or new suspicious mass. Overall Assessment: Negative, BI-RAD 1 Management: Screening Mammogram of both breasts in [address] [facility] will attempt to contact patient to return for supplemental views and ultrasound if indicated. Patient should continue monthly self-breast exams. A clinical breast exam by your physician is recommended on an annual basis. This exam should not preclude additional follow-up of suspicious palpable abnormalities. Note on Kanchan scores and lifetime risk: 1. A Kanchan score greater than 3% is considered moderate risk. If this is the case, consider specialist referral to assess eligibility for a risk reducing agent. 2. If overall lifetime risk for the development of breast cancer is 20% or higher, the patient may qualify for future screening with alternating mammogram and breast MRI. [facility], , 11/04/2024 12:18 PM. Electronically signed and approved by: Aleksandar Moss DO
== END | disposition home or self-care (01) ==
LOC: RADMAMWWP 11:24
PROVIDERS: ATTEND Family Medicine
DX: Z12.39 Encounter for other screening for malignant neoplasm of breast (principal); R92.333 Mammographic heterogeneous density, bilateral breasts; Z80.3 Family history of malignant neoplasm of breast
CPT/HCPCS: 77063; 77067